=== PATIENT | male | born 1950 | race Caucasian/White ===

== ENCOUNTER 2018-06-07 19:03 | Emergency (ER) | payer MEDICARE ==
[~2018-06-07] VITALS: Ht 188 cm; Wt 119.8 kg
[~2018-06-07 19:03] MED LIST: CARI350T PO; DUTA0.5C40 PO; FLO0.4C PO; HYDR1TAB PO; LOSA25TA96 PO; [UNRECOGNIZED DRUG - OTHER]
[2018-06-07 19:40] VITALS: BP 149/98
[2018-06-07 20:33] LABS: CLARITY,URINE CLEAR (Clear); COLOR,URINE YELLOW (Yellow); GLUCOSE, URINE NEGATIVE (Neg); KETONES,URINE NEGATIVE (Neg); LEUKOCYTE ESTERASE ,URINE NEGATIVE (Neg); NITRITES, URINE NEGATIVE (Neg); OCCULT BLOOD,URINE LARGE (Neg); PROTEIN,URINE TRACE mg/dl (Neg); UROBILINOGEN,URINE 0.2 E.U/dL (0.2-1.0)
[2018-06-07 20:38] LABS: UA COLLECTION TYPE CLN CATCH MIDSTREAM
[2018-06-07 20:39] LABS: BACTERIA,URINE FEW /HPF (Neg); MUCUS STRANDS MANY /LPF (Neg); RBC,URINE TNTC /HPF (0-2); SQUAMOUS EPITHELIAL CELL,UR FEW /LPF (FEW); WBC,URINE 0-4 /HPF (0-4)
[2018-06-07] MEDS ORDERED: ONDA4TAB6 PO (21:23)
[2018-06-07] MEDS ORDERED: HYDR-4383 PO (21:23)
== END 2018-06-08 07:44 | disposition home or self-care (01) ==
LOC: ER 19:04
DX: N20.0 Calculus of kidney (principal)
CPT/HCPCS: 81001; 99283

== ENCOUNTER 2020-02-05 10:19 | Emergency (ER) | payer MEDICARE ==
[~2020-02-05] VITALS: Ht 188 cm; Wt 115.9 kg
[~2020-02-05 10:19] MED LIST changes: +HYDR-4383 PO; +ONDA4TAB6 PO
[2020-02-05] MEDS ORDERED: normal saline 1000ML IV soln IVB ONE (11:25)
[2020-02-05] MEDS ORDERED: ondansetron/PF 4mg/2ml inj IV ONE (11:25)
[2020-02-05 11:47] LABS: BASOPHILS % (AUTO) 0.7 % (0-1); EOSINOPHILS % (AUTO) 0.5 % (0-6); HEMATOCRIT 47.4 % (42.0-52.0); LYMPHOCYTES # (AUTO) 1.3 X10'3 (1.1-4.8); LYMPHOCYTES % (AUTO) 18.6 % (21-51); MEAN CORPUSCULAR HEMOGLOBIN 29.5 PG (27.0-31.0); MEAN CORPUSCULAR HGB CONC 33.7 g/dL (33.0-36.5); MEAN CORPUSCULAR VOLUME 87.6 FL (78-98); MONOCYTES # (AUTO) 0.6 X10'3 (0-0.9); MONOCYTES % (AUTO) 8.7 % (2-12); NEUTROPHILS # (AUTO) 4.8 X10'3 (1.8-7.7); NEUTROPHILS % (AUTO) 71.5 % (42-75); PLATELET COUNT 238 X10'3 (140-440); RED BLOOD COUNT 5.41 X10'6 (4.70-6.10); RED CELL DISTRIBUTION WIDTH 14.1 % (11.5-14.5); WHITE BLOOD COUNT 6.7 X10'3 (4.5-11.0)
[2020-02-05 12:04] LABS: ALANINE AMINOTRANSFERASE 50 U/L (12-78); ALBUMIN 3.6 G/DL (3.4-5.0); ALBUMIN/GLOBULIN RATIO 0.9 (1.1-1.5); ALKALINE PHOSPHATASE 93 IU/L (46-116); ANION GAP 8 (8-16); ASPARTATE AMINO TRANSFERASE 25 U/L (10-37); BILIRUBIN,TOTAL 0.6 MG/DL (0.1-1.0); BLOOD UREA NITROGEN 20 MG/DL (7-18); CALCIUM 9.6 MG/DL (8.5-10.1); CHLORIDE 106 MMOL/L (99-107); GLUCOSE 131 MG/DL (70-104); POTASSIUM 4.1 MMOL/L (3.5-5.1); SODIUM 140 MMOL/L (135-145); TOTAL CARBON DIOXIDE 26.5 MMOL/L (24-32); TOTAL PROTEIN 7.7 G/DL (6.4-8.2); eGFR > 90 ML/MIN
[2020-02-05 12:16] LABS: FERRITIN 433 NG/ML (26-388); LACTATE DEHYDROGENASE 197 U/L (85-227)
[2020-02-05 12:40] LABS: D-DIMER 3.29 MG/L FEU (0-0.50)
[2020-02-05] MEDS ORDERED: iohexol 350MG/ML 100ml bottle IV ONE (12:48)
[2020-02-05] MEDS ORDERED: enoxaparin 100mg/ml syringe SUBCUT ONE ×2 (13:35→13:55)
[2020-02-05] MEDS ORDERED: enoxaparin 30mg/0.3ml syringe SUBCUT ONE (13:55)
[2020-02-05] MEDS ORDERED: ALBU6.7H9 INH (14:36)
[2020-02-05] MEDS ORDERED: AZIT250T2 PO (14:36)
[2020-02-05] MEDS ORDERED: RIVA10TA PO (14:36)
[2020-02-05 15:01] VITALS: BP 126/81
== END 2020-02-05 15:03 | disposition home or self-care (01) ==
LOC: ER 10:20
DX: R42 Dizziness and giddiness (principal); R11.2 Nausea with vomiting, unspecified; R06.02 Shortness of breath; R05 Cough; R50.9 Fever, unspecified; R53.81 Other malaise; Z20.828 Contact with and (suspected) exposure to other viral communicable diseases; Z86.718 Personal history of other venous thrombosis and embolism; Z79.2 Long term (current) use of antibiotics; Z79.899 Other long term (current) drug therapy
CPT/HCPCS: 36415; 71045; 71275; 80053; 82728; 83615; 83880; 84145; 84484; 85025; 85379; 86140; 87635; 96361; 96372; 96374; 99291; C9803; J1650; J2405; J7030; Q9967

== ENCOUNTER 2023-01-10 20:38 | Emergency (ER) | payer MEDICARE ==
[~2023-01-10] VITALS: Ht 185.4 cm; Wt 115.1 kg
[~2023-01-10 20:38] MED LIST changes: +ALBU6.7H14 INH; -DUTA0.5C40 PO; -HYDR-4383 PO; -HYDR1TAB PO; +LOSA-415 PO; -LOSA25TA96 PO; +RIVA10TA PO; -[UNRECOGNIZED DRUG - OTHER]
[2023-01-10 21:10] LABS: EOSINOPHILS # (AUTO) 0.1 X10'3 (0-0.9); HEMOGLOBIN 14.3 g/dl (14.0-17.9); MONOCYTES # (AUTO) 0.4 X10'3 (0-0.9)
[2023-01-10 21:13] LABS: ALANINE AMINOTRANSFERASE 27 U/L (12-78); ALBUMIN 3.4 G/DL (3.4-5.0); ALKALINE PHOSPHATASE 61 IU/L (46-116); ANION GAP 8 (8-16); ASPARTATE AMINO TRANSFERASE 16 U/L (10-37); BILIRUBIN,TOTAL 0.4 MG/DL (0.1-1.0); BLOOD UREA NITROGEN 23 MG/DL (7-18); BUN/CREATININE RATIO 15.5 (10.0-20.0); CALCIUM 9.1 MG/DL (8.5-10.1); CHLORIDE 104 MMOL/L (99-107); CREATININE 1.48 MG/DL (0.60-1.10); GLUCOSE 158 MG/DL (70-104); POTASSIUM 3.9 MMOL/L (3.5-5.1); SODIUM 138 MMOL/L (135-145); TOTAL CARBON DIOXIDE 25.6 MMOL/L (24-32); TOTAL PROTEIN 6.8 G/DL (6.4-8.2); eCRCL 50 ML/MIN; eGFR 47 ML/MIN
[2023-01-10 21:22] LABS: ETHANOL 65 MG/DL (<10); PRO BRAIN NATRIURETIC PEPTIDE 1741 PG/ML (0-125)
[2023-01-10 21:25] LABS: APTT 30 SECONDS (22-32); INR 1.9 INR; PROTHROMBIN TIME 19.3 SECONDS (9.0-12.0)
[2023-01-10 21:37] LABS: NEUTROPHILS # (AUTO) 4.4 X10'3 (1.8-7.7)
[2023-01-10 21:56] LABS: BASOPHILS % (AUTO) 0.5 % (0-1); EOSINOPHILS % (AUTO) 1.3 % (0-6); HEMATOCRIT 42.5 % (42.0-52.0); LYMPHOCYTES % (AUTO) 29.3 % (21-51); MEAN CORPUSCULAR HEMOGLOBIN 30.4 PG (27.0-31.0); MEAN CORPUSCULAR HGB CONC 33.5 g/dL (33.0-36.5); MEAN CORPUSCULAR VOLUME 90.7 FL (78-98); MONOCYTES % (AUTO) 5.6 % (2-12); NEUTROPHILS % (AUTO) 63.3 % (42-75); PLATELET COUNT 178 X10'3 (140-440); RED BLOOD COUNT 4.69 X10'6 (4.70-6.10); RED CELL DISTRIBUTION WIDTH 15.8 % (11.5-14.5); WHITE BLOOD COUNT 6.9 X10'3 (4.5-11.0)
[2023-01-10 22:45] VITALS: BP 118/83; PULSE 84; RESP 17; TEMP 97.6; O2SAT 95
== END 2023-01-10 22:48 | disposition home or self-care (01) ==
LOC: ER 20:38
DX: F12.129 Cannabis abuse with intoxication, unspecified (principal); R55 Syncope and collapse; I11.0 Hypertensive heart disease with heart failure; Z79.899 Other long term (current) drug therapy
CPT/HCPCS: 36415; 71045; 80053; 80320; 83880; 84484; 85025; 85610; 85730; 93005; 99285